=== PATIENT | male | born 1995 | race Caucasian/White ===

== ENCOUNTER 2023-06-12 18:48 | Emergency (ER) | payer MEDICAID ==
[~2023-06-12] VITALS: Ht 188 cm; Wt 79.0 kg
[2023-06-12 19:01] VITALS: BP 130/61; PULSE 60; RESP 16; TEMP 98.4; O2SAT 100
[2023-06-12 20:22] LABS: BASOPHILS % 1.2 % (0.0-2.0); DIFFERENTIAL COMMENT 0; EOSINOPHILS % 7.1 % (0.0-5.0); HEMATOCRIT. 39.6 % (42.0-52.0); HEMOGLOBIN. 13.6 g/dL (14.0-18.0); LYMPHOCYTES % 27.6 % (20.0-50.0); MEAN CORPUSCULAR HEMOGLOBIN 27.4 pg (28.0-32.0); MEAN CORPUSCULAR HGB CONC 34.4 g/dL (31.0-37.0); MEAN CORPUSCULAR VOLUME 79.6 fL (80.0-94.0); MEAN PLATELET VOLUME 8.1 fl (7.4-10.4); MONOCYTES % 8.4 % (2.0-8.0); NEUTROPHILS % 55.7 % (40.0-76.0); PLATELET 310 x1000/uL (130-400); RED BLOOD CELL COUNT 4.97 mill/uL (4.7-6.1)
[2023-06-12 20:39] LABS: ACETAMINOPHEN < 2 ug/mL (10-30); ALANINE AMINOTRANSFERASE 20 IU/L (10-49); ALBUMIN 4.2 g/dL (3.2-4.8); ASPARTATE AMINOTRANSFERASE 28 IU/L (<34); BILIRUBIN TOTAL 0.2 mg/dL (0.1-1.0); CARBON DIOXIDE 28 mEq/L (21-32); CHLORIDE 106 mEq/L (98-107); CREATININE 0.7 mg/dL (0.6-1.3); GLUCOSE 88 mg/dL (70-105); POTASSIUM 4.2 mEq/L (3.5-5.1); SODIUM 140 mEq/L (136-145); UREA NITROGEN BLOOD 13 mg/dL (9-23)
[2023-06-12 20:41] LABS: ETHANOL BLOOD < 10 mg/dL (<10)
== END 2023-06-12 23:47 | disposition left against medical advice (07) ==
LOC: ER 18:48
DX: R45.851 Suicidal ideations (principal); K52.9 Noninfective gastroenteritis and colitis, unspecified; J45.909 Unspecified asthma, uncomplicated; F32.A Depression, unspecified
CPT/HCPCS: 36415; 74176; 80053; 80307; 80320; 80329; 85025; 99284; G0480

== ENCOUNTER 2024-02-17 12:39 | Emergency (ER) | payer MEDICAID ==
[~2024-02-17] VITALS: Ht 188 cm; Wt 190.0 kg
[2024-02-17 12:42] VITALS: O2SAT 99
[2024-02-17 13:16] LABS: EOSINOPHILS % 1.1 % (0.0-5.0); HEMATOCRIT. 43.6 % (42.0-52.0); HEMOGLOBIN. 14.8 g/dL (14.0-18.0); LYMPHOCYTES % 22.4 % (20.0-50.0); MEAN CORPUSCULAR HEMOGLOBIN 28.6 pg (28.0-32.0); MEAN CORPUSCULAR HGB CONC 33.9 g/dL (31.0-37.0); MEAN CORPUSCULAR VOLUME 84.4 fL (80.0-94.0); MEAN PLATELET VOLUME 8.1 fl (7.4-10.4); MONOCYTES % 8.2 % (2.0-8.0); NEUTROPHILS % 67.3 % (40.0-76.0); PLATELET 326 x1000/uL (130-400); RED BLOOD CELL COUNT 5.16 mill/uL (4.7-6.1); RED CELL DISTRIBUTION WIDTH 14.7 % (11.6-14.6); WHITE BLOOD COUNT 7.8 x1000/uL (4.5-11.0)
[2024-02-17 13:26] LABS: CARBON DIOXIDE 28 mEq/L (21-32); CHLORIDE 107 mEq/L (98-107); POTASSIUM 4.3 mEq/L (3.5-5.1); SODIUM 139 mEq/L (136-145)
[2024-02-17 13:27] LABS: CALCIUM 10.4 mg/dL (8.7-10.4)
[2024-02-17 13:32] LABS: GLUCOSE 110 mg/dL (70-105); UREA NITROGEN BLOOD 13 mg/dL (9-23)
[2024-02-17 13:33] LABS: ACETAMINOPHEN < 2 ug/mL (10-30); ETHANOL BLOOD < 10 mg/dL (<10)
[2024-02-17 16:41] LABS: CLARITY URINE CLEAR (CLEAR); COLOR URINE YELLOW (YELLOW); GLUCOSE URINE 3+ (NEGATIVE); KETONES URINE NEGATIVE (NEGATIVE); LEUKOCYTE ESTERASE URINE NEGATIVE (NEGATIVE); NITRITE URINE NEGATIVE (NEGATIVE); OCCULT BLOOD URINE NEGATIVE (NEGATIVE); PH URINE 5.5 (4.5-8.0); PROTEIN URINE NEGATIVE (NEGATIVE); SPECIFIC GRAVITY URINE 1.012 (1.005-1.030); UROBILINOGEN URINE 0.2 E.U./dL (0.2-1.0)
[2024-02-17 16:52] LABS: BACTERIA URINE NONE SEEN; RBC URINE 0-2 /hpf (0-2); SQUAMOUS EPITHELIAL CELL URINE RARE /lpf (RARE/1+); WBC URINE 0-2 /hpf (0-2)
[2024-02-17 17:03] LABS: *AMPHETAMINES SCREEN URINE NEGATIVE (NEGATIVE); *BARBITURATES SCREEN URINE NEGATIVE (NEGATIVE); *BENZODIAZEPINES SCREEN URINE PRESUMPTIVE POSITIVE (NEGATIVE)
[2024-02-17 17:04] LABS: *COCAINE SCREEN URINE NEGATIVE (NEGATIVE); CANNABINOID URINE SCREEN NEGATIVE (NEGATIVE); ECSTASY MDMA SCREEN URINE NEGATIVE (NEGATIVE); METHADONE URINE SCREEN NEGATIVE (NEGATIVE); OPIATES URINE SCREEN NEGATIVE (NEGATIVE); PHENCYCLIDINE URINE SCREEN NEGATIVE (NEGATIVE)
[2024-02-18 15:03] VITALS: BP 107/60; PULSE 65; RESP 19; TEMP 98.5
== END 2024-02-18 15:34 ==
LOC: ER 12:50
DX: R45.851 Suicidal ideations (principal); R10.9 Unspecified abdominal pain; Z20.822 Contact with and (suspected) exposure to COVID-19
CPT/HCPCS: 36415; 80048; 80305; 80307; 80320; 80329; 81003; 85025; 87426; 99285; G0480

== ENCOUNTER 2024-03-11 13:29 | Emergency (ER) | payer MEDICAID ==
[~2024-03-11] VITALS: Ht 177.8 cm; Wt 72.0 kg
[2024-03-11 13:30] VITALS: O2SAT 98
[2024-03-11 14:19] LABS: CLARITY URINE CLEAR (CLEAR); COLOR URINE YELLOW (YELLOW); GLUCOSE URINE NEGATIVE (NEGATIVE); KETONES URINE TRACE (NEGATIVE); LEUKOCYTE ESTERASE URINE NEGATIVE (NEGATIVE); NITRITE URINE NEGATIVE (NEGATIVE); OCCULT BLOOD URINE NEGATIVE (NEGATIVE); PROTEIN URINE NEGATIVE (NEGATIVE); SPECIFIC GRAVITY URINE 1.017 (1.005-1.030); UROBILINOGEN URINE 0.2 E.U./dL (0.2-1.0)
[2024-03-11 14:32] LABS: BASOPHILS % 1.2 % (0.0-2.0); EOSINOPHILS % 5.5 % (0.0-5.0); HEMATOCRIT. 40.4 % (42.0-52.0); LYMPHOCYTES % 23.5 % (20.0-50.0); MEAN CORPUSCULAR HEMOGLOBIN 29.1 pg (28.0-32.0); MEAN CORPUSCULAR HGB CONC 34.5 g/dL (31.0-37.0); MEAN CORPUSCULAR VOLUME 84.4 fL (80.0-94.0); MEAN PLATELET VOLUME 7.8 fl (7.4-10.4); MONOCYTES % 8.7 % (2.0-8.0); NEUTROPHILS % 61.1 % (40.0-76.0); PLATELET 279 x1000/uL (130-400); RED BLOOD CELL COUNT 4.79 mill/uL (4.7-6.1); RED CELL DISTRIBUTION WIDTH 13.8 % (11.6-14.6)
[2024-03-11 14:35] LABS: CHLORIDE 109 mEq/L (98-107); POTASSIUM 3.8 mEq/L (3.5-5.1); SODIUM 143 mEq/L (136-145)
[2024-03-11 14:36] LABS: CALCIUM 9.4 mg/dL (8.7-10.4); CARBON DIOXIDE 27 mEq/L (21-32)
[2024-03-11 14:37] LABS: *AMPHETAMINES SCREEN URINE NEGATIVE (NEGATIVE); *BARBITURATES SCREEN URINE NEGATIVE (NEGATIVE); *BENZODIAZEPINES SCREEN URINE NEGATIVE (NEGATIVE); *COCAINE SCREEN URINE NEGATIVE (NEGATIVE); CANNABINOID URINE SCREEN NEGATIVE (NEGATIVE); ECSTASY MDMA SCREEN URINE NEGATIVE (NEGATIVE); METHADONE URINE SCREEN NEGATIVE (NEGATIVE); OPIATES URINE SCREEN NEGATIVE (NEGATIVE); PHENCYCLIDINE URINE SCREEN NEGATIVE (NEGATIVE)
[2024-03-11 14:41] LABS: CREATININE 0.8 mg/dL (0.6-1.3); GLUCOSE 82 mg/dL (70-105); UREA NITROGEN BLOOD 7 mg/dL (9-23)
[2024-03-11 14:43] LABS: ACETAMINOPHEN < 2 ug/mL (10-30)
[2024-03-11 14:46] LABS: ETHANOL BLOOD < 10 mg/dL (<10)
[2024-03-12] MEDS: ARIPIPRAZOLE 5MG TABLET PO SCH (21:00)
[2024-03-12 22:47] VITALS: BP 127/85; PULSE 73; RESP 14; TEMP 36.61404; O2SAT 97
== END 2024-03-12 23:02 ==
LOC: ER 13:29
DX: R45.851 Suicidal ideations (principal); F15.90 Other stimulant use, unspecified, uncomplicated; F20.9 Schizophrenia, unspecified; Z20.822 Contact with and (suspected) exposure to COVID-19
CPT/HCPCS: 36415; 80048; 80305; 80307; 80320; 80329; 81003; 85025; 87426; 99285; G0480